=== PATIENT | male | born 2005 | race Two or more races ===

== ENCOUNTER 2024-04-19 12:40 | Outpatient (REF) | payer OTHER, SELFPAY ==
--- NOTE | ~2024-04-19 | MR_ITS ---
EXAMINATION: MR WRIST WITHOUT CONTRAST, LEFT CLINICAL INFORMATION: Left wrist pain following an injury. COMPARISON: None available. TECHNIQUE: Multisequence MR imaging of the left wrist was obtained without contrast on a high-field strength scanner. FINDINGS: TRIANGULAR FIBROCARTILAGE: Intact. INTRINSIC LIGAMENTS: Intact. TENDONS/MEDIAN NERVE: Edema within the central aspect of the flexor pollicis brevis muscle belly, consistent with an acute strain/partial tear. No full-thickness transverse tendon tear or tendon retraction. Unremarkable median nerve. ARTICULAR CARTILAGE/BONE: Transverse low-T1/high-T2 signal within the distal radial metaphysis, likely indicating an incomplete, nondisplaced transverse fracture. This appears to contact the dorsal cortex. No significant cortical step-off. No extension to the articular surface. Prominent associated marrow edema. Alternatively, findings could represent a prominent osseous contusion with trabecular microfracture. No additional marrow edema. Normal carpal alignment. No articular cartilage loss. No concerning lytic or blastic osseous lesion. JOINT FLUID/SOFT TISSUES: Trace distal radioulnar joint effusion. No soft tissue mass or fluid collection. MR/MR wrist LT wo con IMPRESSION: 1. Incomplete, nondisplaced transverse fracture through the distal radial metaphysis which appears to contact the dorsal cortex. Prominent associated marrow edema. Alternatively, findings could represent a prominent osseous contusion with trabecular microfracture. 2. Acute strain/partial tear of the flexor pollicis brevis muscle. 3. Trace distal radioulnar joint effusion. Electronically signed by: Jhonatan Stevens MD 04/19/2024 01:57 PM [facility] [place]
== END 2024-04-19 12:41 | disposition home or self-care (01) ==
LOC: HO.MRI 12:40
PROVIDERS: Visit Provider Family Medicine
DX: M25.532 Pain in left wrist (principal)
CPT/HCPCS: 73221